=== PATIENT | female | born 1965 | race Caucasian/White ===

== ENCOUNTER 2020-07-13 08:17 | Outpatient (CLI) | payer OTHER, SELFPAY ==
--- NOTE | 2020-07-13 08:26 | MM_ITS ---
WS: [id number] Bilateral screening digital mammogram, 07/13/2020 Clinical Data: SCREENING Comparison: 10/22/2018, 07/31/2017, 06/20/2016, 02/02/2015, 09/21/2013, 07/17/2012, 09/22/2010, 08/24/2009 , 11/05/2008, 02/09/2008. Findings: The breast parenchymal pattern shows fibroglandular tissue No spiculated masses or clustered calcific ations are seen. There are no secondary signs of carcinoma. There is a mole marker on the left breast . MM/[place] [id number] Impression: 1. Negative bilateral mammogram unchanged. 2. Recommend annual screening mammograms. BIRADS: 1-Negative FOLLOW UP: 1 Year Follow-up The CAD frickertron checker was used.
== END 2020-07-13 08:18 | disposition home or self-care (01) ==
LOC: RADSHAW 08:21
PROVIDERS: Family Provider Family Medicine; PCP Family Medicine; Visit Provider Obstetrics & Gynecology
DX: Z12.31 Encounter for screening mammogram for malignant neoplasm of breast (principal)
CPT/HCPCS: 77067

== ENCOUNTER 2021-07-17 07:48 | Outpatient (CLI) | payer OTHER, SELFPAY ==
--- NOTE | 2021-07-17 08:00 | MM_ITS ---
WS: [id number] Exam: [place] [id number] Date/Time of Exam: 07/17/2021 8:02 AM Reason For Exam: Z12.39 - Encounter for other screening for malignant neop... VIEWS: MLO and CC views both breasts. Comparison made with prior exam of 06/20/2016, 07/31/2017, 10/22/2018 and 07/13/2020. Findings: There was no sign of mass, architectural distortion or suspicious calcification in either breast. Sc attered fibroglandular densities MM/[place] [id number] Impression: BI-RADS: 2-Benign FOLLOW-UP: 1 Year Follow-up This mammogram was also analyzed by the Computer Aided Detection System [employer].
== END 2021-07-17 07:49 | disposition home or self-care (01) ==
LOC: RADSHAW 07:52
PROVIDERS: PCP Nurse Practitioner; Visit Provider Obstetrics & Gynecology
DX: Z12.39 Encounter for other screening for malignant neoplasm of breast (principal)
CPT/HCPCS: 77067

== ENCOUNTER 2022-04-04 13:28 | Outpatient (CLI) | payer OTHER, SELFPAY ==
--- NOTE | 2022-04-04 14:11 | MM_ITS ---
WS: [id number] RIGHT 3D TOMOSYNTHESIS DIGITAL MAMMOGRAPHY WITH CAD CLINICAL INFORMATION: N64.4 - Mastodynia HISTORY: RIGHT breast pain COMPARISON: 2020 TECHNIQUE: 3 views of the right breast were obtained. FINDINGS: Scattered fibroglandular densities of the right breast. Parenchymal tissue appears unchanged since ULTRASOUND BREAST RIGHT TECHNIQUE: Ultrasound right breast focused area of concern. FINDINGS: Ultrasound RIGHT breast obtained from the 3 to 8:00 position in the area of concern. Normal underlyin g parenchymal tissue. No cystic or solid lesions. No lesions are for biopsy. Findings are benign. MM/[place] [id number] IMPRESSION: BI-RADS: 2-Benign FOLLOW UP: 1 Year Follow-up Recommend return to annual screening mammography.
== END 2022-04-04 13:29 | disposition home or self-care (01) ==
LOC: RAD 13:30
PROVIDERS: PCP Nurse Practitioner; Visit Provider Obstetrics & Gynecology
DX: N64.4 Mastodynia (principal)
CPT/HCPCS: 76642; 77061

== ENCOUNTER 2022-07-18 08:08 | Outpatient (CLI) | payer OTHER, SELFPAY ==
--- NOTE | 2022-07-18 08:18 | MM_ITS ---
WS: [id number] BILATERAL 3D TOMOSYNTHESIS DIGITAL SCREENING MAMMOGRAPHY WITH CAD CLINICAL INFORMATION: SCREENING HISTORY: Screening mammogram. No current complaints. COMPARISON: July 17, 2021 TECHNIQUE: Bilateral CC and MLO views. FINDINGS: Scattered fibroglandular densities bilaterally. No suspicious focal mass, asymmetry, calcifications, or architectural distortion. No evidence of malignancy. A few incidental punctate calcifications. MM/[place] [id number] IMPRESSION: BI-RADS: 2-Benign FOLLOW UP: 1 Year Follow-up Recommend return to annual screening mammography.
== END 2022-07-18 08:09 | disposition home or self-care (01) ==
PROVIDERS: PCP Nurse Practitioner; Visit Provider Nurse Practitioner
DX: Z12.31 Encounter for screening mammogram for malignant neoplasm of breast (principal)
CPT/HCPCS: 77063; 77067

== ENCOUNTER 2023-07-24 07:55 | Outpatient (CLI) | payer OTHER, SELFPAY ==
--- NOTE | 2023-07-24 08:07 | MM_ITS ---
WS: [id number] SCREENING DIGITAL TOMOSYNTHESIS MAMMOGRAM WITH CAD HISTORY: SCREENING COMPARISON: 07/18/2022, 07/17/2021 Bilateral CC and MLO with tomosynthesis views submitted. Synthetic mammography reviewed. Computer aid ed detection analyzed. Breast composition: There are scattered areas of fibroglandular density. No suspicious masses, microc alcifications or architectural distortion. IMPRESSION: MM/[place] [id number] BI-RADS: 1-Negative FOLLOW UP: 1 Year Follow-up
== END 2023-07-24 07:56 | disposition home or self-care (01) ==
LOC: RAD 07:55
PROVIDERS: PCP Nurse Practitioner; Visit Provider Nurse Practitioner
DX: Z12.31 Encounter for screening mammogram for malignant neoplasm of breast (principal)
CPT/HCPCS: 77063; 77067

== ENCOUNTER 2024-07-29 08:26 | Outpatient (CLI) | payer OTHER, SELFPAY ==
--- NOTE | 2024-07-29 08:27 | MM_ITS ---
WS: [id number] BILATERAL 3D TOMOSYNTHESIS DIGITAL SCREENING MAMMOGRAPHY WITH CAD CLINICAL INFORMATION: SCREEN HISTORY: Screening mammogram. No current complaints. COMPARISON: 2022 TECHNIQUE: Bilateral CC and MLO views. FINDINGS: Scattered fibroglandular densities bilaterally. No suspicious focal mass, asymmetry, calcifications, or architectural distortion. No evidence of malignancy. MM/MM scr BI tomosynthesis [id number] IMPRESSION: DENSITY: There are scattered areas of fibroglandular density. BI-RADS: 1 - Negative. FOLLOW UP: 1 Year Follow-up Recommend return to annual screening mammography.
== END 2024-07-29 08:27 | disposition home or self-care (01) ==
LOC: RAD 08:27
PROVIDERS: PCP Nurse Practitioner Family; Visit Provider Obstetrics & Gynecology
DX: Z12.31 Encounter for screening mammogram for malignant neoplasm of breast (principal); R92.323 Mammographic fibroglandular density, bilateral breasts
CPT/HCPCS: 77063; 77067

== ENCOUNTER 2025-04-21 16:20 | Outpatient (CLI) | payer OTHER, SELFPAY ==
--- NOTE | 2025-04-21 16:27 | CTR_ITS ---
PROCEDURE INFORMATION: Exam: CT Neck With Contrast Exam date and time: 04/21/2025 5:08 PM Age: 59 years old Clinical indication: Throat pain; Prior surgery; Surgery date: 6+ months; Surgery type: Thyroid; Chronic sialoadentis, pain on left side of throat, tender to touch and painful when swallowing x 2 years; Additional info: Chronic sialoadentis, pain in throat TECHNIQUE: Imaging protocol: Computed tomography of the neck with contrast. Radiation optimization: All CT scans at this facility use at least one of these dose optimization techniques: automated exposure control; mA and/or kV adjustment per patient size (includes targeted exams where dose is matched to clinical indication); or iterative reconstruction. Contrast material: OMNI 350; Contrast volume: 100 ml; Contrast route: INTRAVENOUS (IV); COMPARISON: No relevant prior studies available. RADIATION DOSE METRICS: Total DLP (mGy-cm): 246.89 FINDINGS: No acute abnormality of either parotid gland or of either submandibular gland is identified. Parapharyngeal fat planes and fat planes of the floor of mouth are preserved. Symmetric appearance of the sublingual glands. Presumed prior subtotal thyroidectomy. There are small remnants of the thyroid gland, greater on left than right. A midline thyroid nodule is seen inferior to the expected location of the isthmus. A few borderline prominent homogeneous upper cervical lymph nodes, presumably reactive. Chronic multilevel cervical degenerative disc disease is present. No obvious acute osseous abnormality identified. No retropharyngeal fluid or prevertebral soft tissue swelling. Unremarkable appearance of the carotid and jugular vessels in the neck. Intracranially, a left ICA stent extends from the cavernous to the supraclinoid segment. CT/CT neck w con* [id number] IMPRESSION: No obvious acute abnormality identified. No significant abnormality of the major salivary glands is seen. COMMENTS: Consistent with the [place] [employer]'s Incidental Findings Committee white paper (J Am [employer]don Radiol 2015): In patients aged 35 years and older with an incidental thyroid nodule equal to or greater than 1.[address], MRI or extrathyroidal US, further evaluation with dedicated thyroid US is recommended for patients with normal life expectancy and without comorbidities. For smaller nodules without suspicious features, no further evaluation or follow up is recommended.
[2025-04-21] MEDS: iohexol 350 mg/mL 500 mL Btl (per mL) IV (17:18)
[2025-04-21 17:42] LABS: Blood Urea Nitrogen 25 mg/dL (8-23)
== END 2025-04-21 16:21 | disposition home or self-care (01) ==
PROVIDERS: PCP Nurse Practitioner Family; Visit Provider Otolaryngology
DX: K11.23 Chronic sialoadenitis (principal); R59.0 Localized enlarged lymph nodes; R07.0 Pain in throat; M50.30 Other cervical disc degeneration, unspecified cervical region; Z95.828 Presence of other vascular implants and grafts
CPT/HCPCS: 70491; 82565; 84520

== ENCOUNTER 2025-07-30 07:50 | Outpatient (CLI) | payer OTHER, SELFPAY ==
--- NOTE | 2025-07-30 08:00 | MM_ITS ---
WS: [email or web address] BILATERAL 3D TOMOSYNTHESIS DIGITAL SCREENING MAMMOGRAPHY WITH CAD CLINICAL INFORMATION: Z12.39 - Encounter for other screening for malignant neop... HISTORY: Screening mammogram. No current complaints. COMPARISON: 2023 TECHNIQUE: Bilateral CC and MLO views. FINDINGS: Scattered fibroglandular densities bilaterally. No suspicious focal mass, asymmetry, calcifications, or architectural distortion. No evidence of malignancy. MM/MM scr [place] tomosynthesis [id number] IMPRESSION: DENSITY: There are scattered areas of fibroglandular density. BI-RADS: 1 - Negative. FOLLOW UP: 1 Year Follow-up Recommend return to annual screening mammography.
== END 2025-07-30 07:51 | disposition home or self-care (01) ==
LOC: RAD 07:53
PROVIDERS: PCP Nurse Practitioner Family; Visit Provider Obstetrics & Gynecology
DX: Z12.31 Encounter for screening mammogram for malignant neoplasm of breast (principal); R92.323 Mammographic fibroglandular density, bilateral breasts
CPT/HCPCS: 77063; 77067